=== PATIENT | female | born 1985 | race Caucasian/White ===

== ENCOUNTER 2023-02-05 08:25 | Outpatient (CLI) | payer OTHER, SELFPAY ==
--- NOTE | 2023-02-05 09:00 | ECG_ITS ---
Measurements Intervals [place] Rate: 66 P: 56 ID: [id number] QRS: 73 QRSD: 89 T: 33 QT: 387 QTc: 407 Interpretive Statements SINUS RHYTHM NORMAL ELECTROCARDIOGRAM NO PREVIOUS ECG AVAILABLE FOR COMPARISON Electronically Signed On 02-05-2023 13:06:30 CDT by Jaiden Arias M.D.
== END 2023-02-05 08:26 | disposition home or self-care (01) ==
LOC: ANHSURGERY 08:31
PROVIDERS: PCP Family Medicine Sports Medicine; Visit Provider Obstetrics & Gynecology
DX: Z01.818 Encounter for other preprocedural examination (principal); Z87.891 Personal history of nicotine dependence
CPT/HCPCS: 93005

== ENCOUNTER 2023-02-12 01:22 | Day surgery (SDC) | payer OTHER, SELFPAY ==
[2023-02-03 12:24] VITALS: BMI 25.4
--- NOTE | 2023-02-03 12:31 | PC.NURSE ---
Report to the Outpatient Waiting Room, entrance under the green pavilion located off [facility], at time 8:00 on date 02/12/23. Planned Procedure Time: 10:00. Time changes happen often and if your time is changed the preop area will call you the afternoon before. - You and your visitor will be asked to self-screen and do not enter if you have any COVID symptoms. - A mask is optional within the hospital at this time. Patients may have clear liquids (water, carbonated beverages, clear teas, apple juice) until 3 hours prior to surgery with a maximum of 20 ounces. - No food from midnight until time of surgery Take the following medications with a SIP of water the morning of surgery: NONE DO NOT STOP ANY OF YOUR OTHER PRESCRIPTION MEDICATIONS PRIOR TO SURGERY ?EXCEPT THE FOLLOWING Medications to discontinue per physician: VITAMINS/SUPPLEMENTS Date to take last dose: 02/08/23 Please no make-up, nail turkmen, hairspray, perfume, deodorant, or body powder the day of surgery. No jewelry (including any body piercings) or valuables the day of surgery, leave them at home. Please take a shower or bath the night before, or the morning of, surgery with an antibacterial soap. Wear comfortable, loose fitting clothing. - Jewelry must be removed prior to entering the operating room. Rings and piercings that are not removed may be cut off. - The hospital will not accept responsibility for valuables. - Please leave all valuables, including medications, at home the day of surgery. If you are going home after surgery, a licensed lunch truck driver must drive you home. - NO public transportation without another adult if you receive anesthesia. - We recommend that an adult stay with you for 24 hours following discharge. - We also recommend that you do not drive, make important decision, drink alcoholic beverages, or take any drugs that were not prescribed by your health care provider for at least 24 hours after your discharge time. Follow any additional instructions given to you from your surgeon. If you or anyone in your household have experienced Covid symptoms in the past week, please notify your surgeon or the nurse liaison at the phone number below for possible testing. Telephone instructions given to PT - STEFANIE QUILES and asked if any additional questions and then verbalized understanding. Patient advised to call surgeon office or pre surgery nurse liaison [phone] if any additional questions.
[2023-02-12] VITALS (9 sets, daily range): BP systolic 126–159; BP diastolic 81–102; PULSE 61–86; RESP 8–16; TEMP 36.4; O2SAT 99–100
[2023-02-12] MEDS: ACETAMINOPHEN 500 MG TABLET 1000 MG PO (08:23)
[2023-02-12] MEDS: KETOROLAC 15 MG/ML VIAL (*BKC) IV PUSH (08:43)
[2023-02-12] MEDS: LACTATED RINGERS 1,000 ML 30 ML IV CONT ×2 (09:30→11:41)
--- NOTE | 2023-02-12 09:44 | P.PNAN_ITS ---
Anes - Initial Pre Proc Eval Procedure: Operation Date: 02/12/23 10:00 Proposed Procedures p Laparoscopic Bilateral Salpingectomy - Ana Rios MD Date/Time: 02/12/23 09:44 Surgeon: Ana Rios MD Pre Op Diagnosis: female sterilization Patient Data Age: 38 Gender: F Height: 1.69 m Weight: 72.1 kg Last Vital Signs Temp 36.4 C L 02/12/23 08:31 Pulse 70 02/12/23 08:31 Resp 16 02/12/23 08:31 BP 140/93 H 02/12/23 08:31 Pulse Ox 99 02/12/23 08:31 O2 Del Method Room Air 02/12/23 08:31 Allergies Allergy/AdvReac Type Severity Reaction Status Date / Time phenol Allergy Anaphylaxis Verified 02/12/23 08:05 pumpkin Allergy Hives Verified 02/12/23 08:05 Home Medications Medication Instructions Recorded Confirmed Type Saccharomyces boulardii 250 mg 250 mg PO DAILY 02/03/23 02/12/23 History capsule (Daily Probiotic (S. boulardii)) Patient hx anesthesia problems: none Family hx anesthesia problems: none Results Review: All pre-operative results and documents have been reviewed as part of the pre- operative evaluation. [facility] Family History Family History (Updated 03/01/14 @ 07:13 by DOCTOR UNKNOWN) Father Hypertension Mother Hypertension Family history of elevated blood lipids Social History Social History Smoking packs per day: 1 Smoking cigarettes per day: 20.0 Years smoked: 20 Smoking pack-years: 20.00 Smoking status: Former smoker Tobacco type: cigarettes Smoking end date: 12/03/22 Alcohol intake: current Drinks per week: 2 Substance use: never Substance use type: does not use Living arrangements: with family Spiritual care concerns: No Anes - Eval Final PreProcedure Day of Procedure 02/12/23 09:44 Patient weight: overweight Heart: regular rate and rhythm Lungs: clear to auscultation Airway: Mallampati scale class II Neurological: alert and oriented Last oral intake: >/= 8 hours ASA classification: II Emergent: no Anesthetic plan: proceed Anesthesia type and monitoring: general ETT and standard monitoring Results Review: All pre-operative results and documents have been reviewed as part of the pre- operative evaluation. Informed Consent: The patient's anesthetic plan and its attendant risks and benefits were discussed with the patient/family/POA. Questions were solicited and answers provided to the satisfaction of the patient/family/POA.
--- NOTE | 2023-02-12 10:30 | WPDHPUPDATE1 ---
History and Physical Update Update Date/Time: 02/12/23 10:30 History and Physical has been reviewed, including an updated exam of the patient. There are NO changes in the patient's condition. Risks, benefits, and alternatives have been discussed and questions answered. Patient agrees to proceed with procedure.
--- NOTE | 2023-02-12 10:36 | PM.IMHP ---
H&P: HPI History of Present Illness Date/Time: 02/12/23 10:36 Chief Complaint: Unwanted fertility Narrative: this patient is a 38-year-old female who desires female sterilization. We agreed to perform laparoscopic bilateral salpingectomy. She understands the procedure. She understands the risk. She understands that injuries may occur that result in hospitalization, more surgery, and severe illness. She understands risk of hemorrhage and infection. She denies any nausea, vomiting, fever, chills. She denies any chest pain or shortness of breath. Review of Systems Review of Systems: All systems reviewed & are unremarkable except as noted in HPI and below Constitutional: Constitutional: Denies chills, Denies fatigue, Denies fever(s) and Denies weakness Eyes: Eyes: Denies blurry vision, Denies change in vision, Denies loss of peripheral vision, Denies loss of vision, Denies other visual disturbances and Denies eye pain ENT: Denies vertigo, Denies dizziness, Denies hearing loss, Denies mouth pain, Denies nasal obstruction, Denies neck mass and Denies neck pain Cardiovascular: Cardiovascular: Denies chest pain, Denies diaphoresis, Denies syncope, Denies leg edema and Denies dyspnea Respiratory: Respiratory: Denies chest congestion, Denies cough, Denies hemoptysis, Denies dyspnea and Denies wheezing Gastrointestinal: Gastrointestinal: Denies abdominal pain, Denies constipation, Denies diarrhea, Denies nausea and Denies vomiting Genitourinary: Genitourinary: Denies hematuria, Denies change in libido, Denies nocturia, Denies genital lesions, Denies flank pain and Denies urinary urgency Musculoskeletal: Musculoskeletal: Denies abnormal gait, Denies back pain, Denies myalgias, Denies arthralgias, Denies joint swelling, Denies muscle weakness and Denies neck pain Integumentary/Breasts: Skin/Breast: Denies swelling, Denies breast pain, Denies breast mass, Denies dry skin, Denies nipple discharge, Denies unusual bruising and Denies jaundice Neurologic: Denies Neuro-related abnormal movements, Denies Abnormal speech present, Denies abnormal gait, Denies behavioral changes, Denies confusion, Denies vertigo, Denies dizziness, Denies syncope, Denies loss of vision, Denies memory loss, Denies convulsions and Denies weakness Psychiatric: Psychiatric: Denies abnormal sleep pattern, Denies behavioral changes, Denies change in libido, Denies confusion, Denies depression, Denies anhedonia and Denies memory loss Endocrine: Endocrine: Reports no additional endocrine complaints, Denies change in libido and Denies fatigue Hematologic/Lymphatic: Hematologic/Lymphatic: Reports no additional hematologic/lymphatic complaints Allergic/Immunologic: Allergic/Immunologic: Reports no additional allergic/immunologic complaints and Denies wheezing [facility] Family History Family History (Updated 03/01/14 @ 07:13 by DOCTOR UNKNOWN) Father Hypertension Mother Hypertension Family history of elevated blood lipids Social History Social History Smoking packs per day: 1 Smoking cigarettes per day: 20.0 Years smoked: 20 Smoking pack-years: 20.00 Smoking status: Former smoker Tobacco type: cigarettes Smoking end date: 12/03/22 Alcohol intake: current Drinks per week: 2 Substance use: never Substance use type: does not use Living arrangements: with family Spiritual care concerns: No Meds Home Medications and Allergies Home Medications Medication Instructions Recorded Confirmed Type Saccharomyces boulardii 250 mg 250 mg PO DAILY 02/03/23 02/12/23 History capsule (Daily Probiotic (S. boulardii)) Allergies Allergy/AdvReac Type Severity Reaction Status Date / Time phenol Allergy Anaphylaxis Verified 02/12/23 08:05 pumpkin Allergy Hives Verified 02/12/23 08:05 Vital Signs Vital Signs - 24 hr 02/12/23 08:31 Temperature 97.5 F L Pulse Rate 70 Respiratory Rate 16 Blood Pressure 140/93 H Pulse Oximetr
--- NOTE | 2023-02-12 11:51 | W.PM.PROC2 ---
Procedure Note - Detailed Date of Procedure 02/12/23 Pre-op Diagnosis female sterilization Post-op Diagnosis Same Procedure Performed Laparoscopic bilateral salpingectomy Surgeon Ana Rios MD Anesthesia General Indications Unwanted fertility Findings Normal pelvic anatomy Description of Procedure The patient was taken the operating room. She was prepped and draped in the dorsal lithotomy position after induction of general anesthesia. A 5 mm skin incision was made in the left upper quadrant of the abdominal skin. A 5 mm trocar was inserted the intra-abdominal cavity under direct visualization of the scope. Pneumoperitoneum was achieved. A 5 mm trocar was inserted in the left lower quadrant identical fashion. A 5 mm infraumbilical trocar was inserted in identical fashion as well. The bilateral fallopian tubes were removed. This was done by using a LigaSure cautery. The mesosalpinx adjacent to the tube was cauterized transected with LigaSure. This was initiated in the area the ovary and in a stepwise fashion moved medially to the area of the cornu of the uterus. Once there the fallopian tube was cauterized and transected. This was done in identical fashion on each side. The fallopian tubes were taken out through the left lower quadrant trocar site. The pneumoperitoneum was reduced. The trocars removed. The skin was closed with subcuticular 4 Monocryl and covered with Dermabond. She was taken to cover stable condition. Sponge lap and needle counts were correct x2. Estimated Blood Loss 5 Drains No Packing No Pathology Yes Complications No immediate complications Condition Stable Disposition PACU
[2023-02-12] MEDS: fentaNYL CITRATE INJ (*CRX) 100 MCG/2 ML VIAL 25 MCG IV PUSH (12:20)
[2023-02-12] MEDS: oxyCODONE HCL (*CRX) 5 MG TAB IR PO (13:26)
--- NOTE | 2023-02-12 13:49 | SUR.PHASEII ---
Dr. Ashraf notified of patient's elevated BP. No new orders received at this time.
== END 2023-02-12 14:01 | disposition home or self-care (01) ==
PROVIDERS: PCP Family Medicine Sports Medicine; Visit Provider Obstetrics & Gynecology
PROC: (CPT 49320; principal; 2023-02-12 10:00)
DX: Z30.2 Encounter for sterilization (principal); Z87.891 Personal history of nicotine dependence
CPT/HCPCS: 58661; 88302; 93005; A9270; J1100; J1885; J2250; J2405; J2704; J3010; J7120